=== PATIENT | female | born 1955 | race Caucasian/White ===

== ENCOUNTER 2025-03-20 05:20 | Emergency (ER) | payer OTHER, SELFPAY ==
[2025-03-20 05:25] VITALS: BP 169/91; PULSE 82; TEMP 36.6; O2SAT 95; BMI 31.5
[2025-03-20 05:26] VITALS: BP 169/91
--- OUTSIDE RECORDS SUMMARY | 2025-03-20 05:30 | XMS_ITS | Clinical Summary ---
Author Organization [facility] Address [address] [place] [address] Phone Care Team Providers Care Mri Ct Tech Name Role Phone Yee Sanchez MD Primary Care Provider [phone] Social History Tobacco UseTypesPacks/DayYears UsedDateSmoking Tobacco: Never Assessed CommentsUnknownSex and Gender InformationValueDate RecordedSex Assigned at Not on fileLegal OjsCeubtv59/25/2022 2:01 PM ESTGender IdentityNot on fileSexual OrientationNot on file Plan of Treatment Not on file Care Teams Team MemberRelationshipSpecialtyStart DateEnd Date Yee Sanchez MD [address] [place] [address] PCP - General09/17/21
--- OUTSIDE RECORDS SUMMARY | 2025-03-20 05:30 | XMS_ITS | Clinical Summary ---
Author Organization [facility] Address [address] [facility], [address] [place] [address] Care Team Providers Care Carbon Paper Interleafer Name Role Phone Yee Sanchez MD Primary Care Provider [phone] Allergies No known active allergies Medications MedicationSigDispense QuantityRefillsLast FilledStart DateEnd DateStatus omeprazole (PRILOSEC) 40 MG delayed release capsule Take 40 mg by mouth dailyActive alendronate (FOSAMAX) 70 MG tablet Take 70 mg by mouth every 7 daysActive gabapentin (NEURONTIN) 100 MG capsule Take 1 capsule by mouth 3 times daily for 30 days. 90 capsule 03/21/2020Active Social History Tobacco UseTypesPacks/DayYears UsedDateSmoking Tobacco: NeverSmokeless Tobacco: NeverCommentsUnknownSex and Gender InformationValueDate RecordedSex Assigned at BirthNot on fileLegal LtdKzxnjk04/18/2018 9:34 PM ESTGender Identity Not on fileSexual OrientationNot on file Last Filed Vital Signs Vital SignReadingTime TakenCommentsBlood Pressure--Pulse--Pthjfbqscwi69.1 ??C (96.9 ??F)07/18/2020 11:20 AM ESTRespiratory Rate--Oxygen Saturation--Inhaled Oxygen Concentration--Lufmnn86.3 kg (155 lb)07/18/2020 11:20 AM JXAHjmozk102 cm (5' 3 )07/18/2020 11:20 AM ESTBody Mass Index27.46007/18/2020 11:20 AM EST Plan of Treatment Not on file Insurance Care Teams Team MemberRelationshipSpecialtyStart DateEnd Date Yee Sanchez MD PCP - GeneralFamily Medicine12/25/18
--- OUTSIDE RECORDS SUMMARY | 2025-03-20 05:30 | XMS_ITS | Clinical Summary ---
Author Organization [facility] Address [id number] [address] [place] [address] Care Team Providers Care Compressor Repairer Name Role Phone Unavailable Primary Care Provider Unavailabl e Social History Tobacco UseTypesPacks/DayYears UsedDateSmoking Tobacco: Never AssessedChildcare AnswerDate QnwtgjhuRqfjuzyhsTqfvawp31/12/2019EmploymentAnswerDate Recorded FnkwoayyzzKsgzzzs56/12/2019CommentsUnknownSex and Gender Information ValueDate RecordedSex Assigned at BirthNot on fileLegal LsyAgqomn10/06/2015 12:12 PM EDTGender IdentityNot on fileSexual OrientationNot on file Plan of Treatment Not on file Medical Devices Not on file
--- OUTSIDE RECORDS SUMMARY | 2025-03-20 05:30 | XMS_ITS | Encounter Summary ---
Author Organization [facility] Address [address] [place] [address] Care Team Providers Care Production Illustrator Name Role Phone Jan Rich MD Primary Care Provider + [phone] Jan Rich MD Unavailable [phone] Spencer Lozoya MD Unavailable [phone] Francisco Ronquillo MD Unavailable [phone] Encounter Details DateTypeDepartmentCare Team (Latest Contact Info)Srzeicdcxfp33/30/2025Orders Only [facility] External Department Unsolicited Jan Rich MD [address] [facility] [address] [place] [address] (Fax) Social History Tobacco UseTypesPacks/DayYears UsedDateSmoking Tobacco: NeverPassive Smoke Exposure: PastSmokeless Tobacco: Never Comments:2nd hand smoke. Bot h parents smoked Alcohol UseStandard Drinks/WeekCommentsYes5 (1 standard drink = 0.6 oz pure alcohol)caffeine intake : 1-2 cups per [id number] Health LiteracyAnswerDate RecordedHow often do you need to have someone help you when you read instructions, pamphlets, or other written material from your doctor or pharmacy? Never12/10/2024Humiliation, Afraid, Rape, and Kick questionnaireAnswerDate RecordedWithin the last year, have you been afraid of your partner or ex-partner?No12/10/2024Within the last year, have you been humiliated or emotionally abused in other ways by your partner or ex-partner?No12/10/2024 Within the last year, have you been kicked, hit, slapped, or otherwise physically hurt by your partner or ex-partner?No12/10/2024Within the last year, have you been raped or forced to have any kind of sexual activity by your part ner or ex-partner?No12/10/2024Social Connection and Isolation PanelAnswerDate RecordedIn a typical week, how many times do you talk on the phone with family, friends, or neighbors?Patient oauspupp08/04/2025How often do you get together with friends or relatives?More than three times a week12/10/2024How often do you attend methodist or scientology services?Patient rvcpudey33/04/2025Do you belong to any clubs or organizations such as methodist groups, unions, [employer] or athletic groups, or school groups?Patient eiefdmlp83/04/2025How often do you attend meetings of the clubs or organizations you belong to?Patient okfbxmsi18/04/2025 Are you , , , , never , or living with a partner?Hikwyuu7612/10/2024UDIT-CAnswerDate RecordedQ1: How often do you have a drink containing alcohol?4 or more times a week12/10/2024Q2: How many drinks containing alcohol do you have on a typical day when you are drinking?1 or 2 12/10/2024Q3: How often do you have six or more drinks on one occasion?Never 12/10/2024Overall Financial Resource Strain (CARDIA)AnswerDate RecordedHow hard is it for you to pay for the very basics like food, housing, medical care, and heating?Not hard at all12/10/2024PHQ-2AnswerDate RecordedPatient Health Questionnaire-2 Idjmp569[facility] [place] of Occupational Health - Occupational Stress QuestionnaireAnswerDate RecordedDo you feel stress - tense, restless, nervous, or anxious, or unable to sleep at night because yourmind is troubled all the time - these days?Not at all12/10/2024Exercise Vital SignAnswer Date RecordedOn average, how many days per week do you engage in moderate to strenuous exercise (like a brisk walk)?4 days12/10/2024On average, how many minutes do you engage in exercise at this level?50 min12/10/2024Hunger Vital SignAnswerDate RecordedWithin the past 12 months, you worried that your food would run out before you got the money to buymore.Never true12/10/2024Within the past 12 months, the food you bought just didn't last and you didn't have money to get more.Patient gwfwvagd94/04/2025PRAPARE - TransportationAnswerDate RecordedIn the past 12 months, has lack of transportation kept you from medical appointments or from getting medications?No12/10/2024In the past 12 months, has lack of transportation kept you from meetings, work, or from getting things needed for daily living?No12/10/2024Housing Stability Vital SignAnswerDate RecordedIn the last 12 months, was there a time when you were not able to pay the mortgage or rent on time?No10/10/2022In the last 12 months, how many places have you lived?In the last 12 months, was there a time when you did not have a steady place to sleep or slept in [place] (including now)?No 10/10/2022Housing Stability Vital SignAnswerDate RecordedIn the last 12 months, was there a time when you were not able to pay the mortgage or rent on time?No 12/10/2024Number of Times Moved in the Last YearNot on file12/10/2024t any time in the past 12 months, were you homeless or living in a custodial (including now)? No12/10/2024CommentsNoSex and Gender InformationValueDate RecordedSex Assigned at BirthNot on fileLegal YggAcoppr67/15/2023 6:46 PM EDTGender Identity Not on fileSexual OrientationNot on fileTravel HistoryTravel StartTravel End Jmzyay66documented as of this encounter Plan of Treatment DateTypeDepartmentCare Team (Latest Contact Info)Mtjaddpqzof36/12/2025 10:30 AM ESTOffice Visit [facility] [address] [place] [address] Jan Rich MD [address] [place] [address] (Fax) 05/13/2025 9:40 AM ESTOffice Visit [facility] [address] [place] [phone] Ulises Juares MD [address] [place] [address] 03/03/2026 11:00 AM EDTOffice Visit [facility] [address] [place] [address] Francisco Ronquillo MD [address] [place] [address] documented as of this encounter Procedures Procedure NamePriorityDate/TimeAssociated DiagnosisCommentsT3, FREERoutine 03/07/2025 9:13 AM EDT GKZQezfegp71/30/2025 9:13 AM EDT T4, FYPCFritnkn35/30/2025 9:13 AM EDT documented in this encounter Results * T3, free (03/07/2025 9:13 AM EDT)ComponentValueRef RangeTest MethodAnalysis TimePerformed AtPathologist SignatureT3, FREE2.82.0 - 4.4 pg/mLLABCORPSpecimen (Source)Anatomical Location / LateralityCollection Method / VolumeCollection TimeReceived Time03/07/2025 9:13 AM EDT1 Narrative [facility] - 03/08/2025 8:07 AM EDT Performed at: 02 - [facility] [address] ??[id number] Cleat Feeder: Jose Alas PhD, Phone: ??[phone] Authorizing ProviderResult TypeResult StatusJan LEE BLOOD ORDERABLESFinal ResultPerforming OrganizationAddressCity/State/ZIP CodePhone Number [facility] * TSH (03/07/2025 9:13 AM EDT)ComponentValueRef RangeTest MethodAnalysis Time Performed AtPathologist SignatureTSH1.5700.450 - 4.500 uIU/mLLABCORPSpecimen (Source)Anatomical Location / LateralityCollection Method / VolumeCollection TimeReceived Time03/07/2025 9:13 AM EDT1 Narrative [facility] - 03/08/2025 8:07 AM EDT Performed at: - [address], [address] ??[id number] Cleat Feeder: Sixto García MD, Phone: ??[phone] Authorizing ProviderResult TypeResult StatusJan LEE BLOOD ORDERABLESFinal ResultPerforming OrganizationAddressCity/State/ZIP CodePhone Number [facility] * T4, free (03/07/2025 9:13 AM EDT)ComponentValueRef RangeTest MethodAnalysis TimePerformed AtPathologist UpdfkcnzwG0Zvba(Direct)1.350.82 - 1.77 ng/dL [facility]PSpecimen (Source)Anatomical Location / LateralityCollection Method / VolumeCollection TimeReceived Time03/07/2025 9:13 AM EDT1 Narrative [facility] - 03/08/2025 8:07 AM EDT Performed at: 01 - [place] [address] [address] [facility], [address] ??[id number] Cleat Feeder: Sixto García MD, Phone: ??[phone] Authorizing ProviderResult TypeResult StatusJan LEE BLOOD ORDERABLESFinal ResultPerforming OrganizationAddressCity/State/ZIP CodePhone Number [facility] documented in this encounter Visit Diagnoses Not on filedocumented in this encounter Care Teams Team MemberRelationshipSpecialtyStart DateEnd Date Jan Rich MD [address] [place] [address] (Fax) [facility] Jan Rich MD [address] [place] [address] PCP - Devoted05/09/23 Spencer Lozoya MD [address] [place] [address] Referring PhysicianUrolog06/16/23 Francisco Ronquillo MD [address] [place] [address] Obstetrics and Gynecology06/16/23documented as of this encounter
--- OUTSIDE RECORDS SUMMARY | 2025-03-20 05:30 | XMS_ITS | Clinical Summary ---
Author Organization [facility] Address [address] [place] [address] Care Team Providers Care Children'S Librarian Name Role Phone Jan Rich MD Primary Care Provider + [phone] Jan Rich MD Unavailable [phone] Spencer Lozoya MD Unavailable [phone] Keshawn Ronquillo MD Unavailable [phone] Allergies Active AllergyReactionsCriticalityNoted DateCommentsAmoxicillin-Pot Clavulanate CryyxNeb00/25/2023 AUGMENTIN DlxqborkbojdZoooziaBhb03/25/0295TrqgbkxZatbcCkv96/25/2023LevofloxacinOtherLow 05/31/2023 Muscle aches Medications MedicationSigDispense QuantityRefillsLast FilledStart DateEnd DateStatus fexofenadine (Rosa Allergy) 180 MG tablet Take 180 mg by mouth DailyActive atorvastatin (Lipitor) 20 MG tablet Indications:Mixed dyslipidemiaTake 1 tablet (20 mg) by mouth at bedtime. 90 tablet ctive Multiple Vitamins-Minerals (ONE-A-DAY VITACRAVES PO) Take 1 tablet by mouth 1 (one) time each day With 25mcg Vit DActive Ascorbic Acid (VITAMIN C GUMMIE PO) Take by mouth DailyActive Biotin w/ Vitamins C & E (HAIR SKIN & NAILS GUMMIES PO) Take by mouth DailyActive Probiotic Product (PROBIOTIC ADVANCED PO) Take by mouthActive calcium citrate 250 MG tablet Indications:Osteopenia1 tablet 2-3 times daily as directed.12/19/2023ctive STRONTIUM CITRATE Indications:Osteopenia, unspecified locationTake 1 capsule by mouth at bedtime 12/19/2023ctive cholecalciferol (Vitamin D-3) 125 MCG (5000 UT) tablet Indications:Vitamin D DeficiencyOTC vitamin D3 5000 units, Winter dose, take 1 capsule daily.12/19/2023ctive Menaquinone-7 (Vitamin K2) 100 MCG capsule Indications:Localized osteoporosis without current pathological fractureTake 1 capsule by mouth Daily12/19/2023ctive levothyroxine (Synthroid, Levoxyl) 100 MCG tablet Indications:Acquired hypothyroidismTake 1 tablet (100 mcg) by mouth in the morning. Take before meals. 90 tablet /5Active doxazosin (Cardura) 4 MG tablet Take 4 mg by mouth Daily5Active Spacer/Aero-Holding Chambers (BreatheRite Mckayla Spacer Adult) [facility] Indications:SOBOE (shortness of breath on exertion)2 puffs 4 (four) times a day as needed (sob and cough) 1 each 5Active albuterol HFA 90 mcg/act inhaler Indications:SOBOE (shortness of breath on exertion)Inhale 2 puffs every 4 (four) hours if needed for wheezing 18 g tive triamcinolone (Kenalog) 0.1 % cream Apply topicallyActive omeprazole (PriLOSEC) [address] capsule Indications:LPRD (laryngopharyngeal reflux disease)Take 1 capsule (40 mg) by mouth in the morning. Take before meals. Do not crush or chew. 90 capsule //ctive famotidine (Pepcid) 20 MG tablet Indications:LPRD (laryngopharyngeal reflux disease)Take 1 tablet (20 mg) by mouth at bedtime 90 tablet //ctive azelastine (Astelin) 0.1 % nasal spray Indications:Chronic rhinitisAdminister 2 sprays into each nostril in the morning and 2 sprays before bedtime. Use in each nostril as directed. 90 mL 310ctive fluticasone (Flonase) 50 MCG/ACT nasal spray Indications:Chronic rhinitisAdminister 2 sprays into each nostril Daily Shake gently. Before first use, prime pump. After use, clean tip and replace cap. 48 g 111051ctive Estradiol 0.01 % cream Indications:Postmenopausal atrophic vaginitisInsert 1 g into the vagina 2 (two) times a week 42 g 310/6Active estradiol (Estrace) 0.1 MG/GM vaginal cream Indications:Postmenopausal atrophic vaginitisInsert 1 g into the vagina 2 (two) times a week 42 g Discontinued(Reorder) Active Problems ProblemNoted DateDiagnosed DateChronic emztywh7603/20/2024Non morbid obesity due to excess crnujkda83/12/2024Vitamin D jjdwmxexnl21/12/2024iaphragm paralysis 06/24/2023 Overview (06/24/2023): Right hemidiaphragm elevation Thoracic aorta hwjrcgahcroitxd12/16/2024OAB (overactive bladder)10/14/2022Stress bkhtagkxffif32/08/2023cquired xcaicpjcqxkyxh87/25/2023therosclerosis of abdominal aorta09/30/2022trophic qojvuekne99/25/2023KD (chronic kidney disease), stage II09/30/2022iverticular disease of colon09/30/2022Hashimoto's ongeaiz2209/30/2022Seasonal allergic /25/2023oronary artery disease involving [place] coronary artery of [place] heart without angina pectoris 09/30/2022Hypertrophic ihfvgrtxjwuojy95/25/2023LPRD (laryngopharyngeal reflux disease)09/30/2022Mixed qsbshyltvkrk17/25/2023Nonalcoholic fatty liver disease 09/30/2022Obstructive sleep apnea zydcxdac21/25/1436Rdprpnfmnx18/25/2023History of lumbar sschcarfms39/26/2016 Resolved Problems ProblemNoted DateDiagnosed DateResolved DateOther urethral stricture, female /etained ureteral stent/alculus of ezvzcy27/hronic fatigue njziuqss78/04/2024 Tqbyeqhzvhtpr14/25/202308/Overweight (BMI 25.0-29.9)/04/2024 Pure afqozyesguyrqcyui22/25/202306/12/2022 Encounters DateTypeDepartmentCare LucqUmmzxcprzwt81/05/6917Lpfoms60/30/2025Orders Only [facility] External Department Unsolicited Jan Rich MD 02/25/2025 10:30 AM EDTOffice Visit [facility] [place] [facility] [address] [place] [phone] Keshawn Ronquillo MD Postmenopausal atrophic vaginitis (Primary Dx); Dyspareunia in female; Cervical cancer screening; Other screening bvxfyxlyo65/20/2025amboo flowsheet [facility] [place] [facility] [address] [place] [address] Keshawn Ronquillo MD 02/25/20255209Lcdoic27/06/2025 10:00 AM EDTOffice Visit [facility] [place] [facility] [address] [place] [address] Ulises Juares MD Post-nasal drip (Primary Dx); Chronic cough; Dyspnea, unspecified type; Chronic qcxxvzbi16/06/2025amboo flowsheet [facility] [place] [facility] [address] [place] [address] Ulises Juares MD 02/11/20259045Mzomhh40/05/0148Bwuinj47/18/2025Orders Only [facility] [place] [place] [address] Bg, August, Encounter for screening for malignant neoplasm of colon; Chronic coughfrom Last 3 Months Immunizations ImmunizationAdministration DatesNext DueABRYSVO - Respiratory syncytial virus (RSV), vaccine, bivalent, protein subunit RSV prefusion F, diluent reconstituted, 0.5 mL, PF12/14/2023Influenza, Seasonal, Quadrivalent, Adjuvanted 04/21/2023Influenza, injectable, ppyngthsivja33/28/2020Influenza, seasonal, urnyeqfatq88/12/2014Pneumococcal Conjugate PCV Zoster, Recombinant 12/25/2020,05/14/2020 Family History Medical HistoryRelationNameCommentsCOPDFatherHerbertHearing lossFatherHerbert Heart diseaseFatherHerbertParkinsonismFatherHerbertHeart diseaseMotherThelmaSkin cancerSiblingBasal cell carcinomaSister 1SallyBreast cancerSister 1SallyCancer Sister 1SallyIdiopathic pulmonary fibrosisSister 1SallyArthritisSister 2Roxanne MigrainesSister 2RoxanneOsteoarthritisSister 2RoxanneRheum arthritisSister 2 RoxanneMigrainesSister 3LindaRheum arthritisSister 3LindaArthritisSister 4 Barbara frederickAsthmaSister 4Roxanne frederickRheumatologic diseaseSister 4 Barbara frederickCancerSister 5sally moltzCancerSister 6Sally moltzRelationName StatusCommentsFatherHerbertDeceasedMotherThelmaDeceasedSiblingAliveSister 1Sally Sister 2RoxanneSister 3LindaSister 4Roxanne frederickAliveSister 5sally moltz AliveSister 6Sally moltzAlive Social History Tobacco UseTypesPacks/DayYears UsedDateSmoking Tobacco: NeverPassive Smoke Exposure: PastSmokeless Tobacco: Never Tobacco Cessation:Counseling Given: Yes Comments:2nd hand smoke. Both parents smoked Alcohol UseStandard Drinks/WeekCommentsYes5 (1 standard drink = 0.6 oz pure alcohol)caffeine intake : 1-2 cups per [id number] Health LiteracyAnswerDate RecordedHow often do you need [...] the phone with family, friends, or neighbors?Patient /04/2025How often do you get together with friends or relatives?More than three times a week12/10/2024How often do you attend adventist or muslim services?Patient efbefhiy21/04/2025Do you belong to any clubs or organizations such as adventist groups, unions, fraternal or athletic groups, or school groups?Patient deuwmtoa97/04/2025How often do you attend meetings of the clubs or organizations you belong to?Patient crysuays84/04/2025 Are you , , , , never , or living with a partner?Cyyhhhb1312/10/2024UDIT-CAnswerDate RecordedQ1: How often do you have a [...] heating?Not hard at all12/10/2024PHQ-2AnswerDate RecordedPatient Health Questionnaire-2 Ltumn153[facility] [place] of Occupational Health - Occupational Stress QuestionnaireAnswerDate [...] you didn't have money to get more.Patient yjdppuzc72/04/2025PRAPARE - TransportationAnswerDate RecordedIn the past 12 months, [...] steady place to sleep or slept in [facility] (including now)?No 10/10/2022Housing Stability Vital SignAnswerDate RecordedIn the last 12 months, was there a time when you were not able to pay the mortgage or rent on time?No 12/10/2024Number of Times Moved in the Last YearNot on file12/10/2024t any time in the past 12 months, were you homeless or living in a skilled nursing (including now)? No12/10/2024CommentsNoSex and Gender InformationValueDate RecordedSex Assigned at BirthNot on fileLegal DrzQeuxmu44/15/2023 6:46 PM EDTGender Identity Not on fileSexual OrientationNot on fileTravel HistoryTravel StartTravel End Zjxkxl17 Last Filed Vital Signs Vital SignReadingTime TakenCommentsBlood Okimyajn384/8010 10:23 AM EDT Ehwfp1998 11:07 AM EDTTemperature--Respiratory Rate--Oxygen Saturation 96%12/17/2024 11:07 AM EDTInhaled Oxygen Concentration--Nivmmp09.2 kg (168 lb) 02/25/2025 10:23 AM OLIQndxlw808.8 cm (5' 2.5 )02/11/2025 10:11 AM EDTBody Mass Index30.241 10:11 AM EDT Plan of Treatment DateTypeDepartmentCare Team (Latest Contact Info)Jltukecmurf54/12/2025 10:30 AM ESTOffice Visit [facility] [address] [place] [address] Jan Rich MD [address] [place] [address] (Fax) 05/13/2025 9:40 AM ESTOffice Visit [facility] [place] [facility] [address] [place] [phone] Ulises Juares MD [address] [place] [address] 03/03/2026 11:00 AM EDTOffice Visit [facility] [place] [facility] [address] [place] [address] Keshawn Ronquillo MD [address] [place] [address] Health MaintenanceDue DateLast DoneCommentsCT Gezoygllbppe1956FIT-DNA 1955FIT1955FOBT1955 0024Qjontqaovmhwg1956OVID-19 Vaccine ( season), 07/16/2020, 06/18/2020Influenza Vaccine (#1), 02/04/2020, 04/19/20147044Taxpcuvdmkg96/02/80456406/10/2014 Colorectal Cancer Axpjpidku92/02/3334Jausisiyt96/26/35262507/04/2023, 04/28/2023, 04/28/2023, Additional history existsMedicare Annual Wellness (AWV)12/17/2025 12/17/2024, 12/13/2023, 10/14/2022, Additional history existsPneumococcal Vaccine: 65+ Years (2 of 2 - PPSV23, PCV20, or PCV21) Postponed from 04/16/2020 (Patient Refused) Procedures Procedure NamePriorityDate/TimeAssociated DiagnosisCommentsT3, FREERoutine 03/07/2025 9:13 AM EDT OLWUzwpdzt74/30/2025 9:13 AM EDT T4, KKRLQghakdx10/30/2025 9:13 AM EDT IGP,RFX APTIMA HPV ALL NAPBwkwkan22/20/2025 12:00 AM EDT Cervical cancer screening BI MAMMOGRAM SCREENING TOMOSYNTHESIS TBZFUGRQT68/26/2024 4:26 PM EST TTMZMAEVQKZIlbdbly24/02/2015 12:00 PM EST from Last 3 Months or Most Recently Relevant to Health Maintenance Results * T3, free (03/07/2025 9:13 AM EDT)ComponentValueRef RangeTest MethodAnalysis TimePerformed AtPathologist SignatureT3, FREE2.82.0 - 4.4 pg/mLLABCORPSpecimen (Source)Anatomical Location / LateralityCollection Method / VolumeCollection TimeReceived Time03/07/2025 9:13 AM EDT1 Narrative [facility] - 03/08/2025 8:07 AM EDT Performed at: [address], [place], [place] ??[id number] Drywall Sander: Jose Alas PhD, Phone: ??[phone] Authorizing ProviderResult TypeResult StatusJan LEE BLOOD ORDERABLESFinal ResultPerforming OrganizationAddressty/State/ZIP CodePhone Number [facility] * TSH (03/07/2025 9:13 AM EDT)ComponentValueRef RangeTest MethodAnalysis Time Performed AtPathologist SignatureTSH1.5700.450 - 4.500 uIU/mLLABCORPSpecimen (Source)Anatomical Location / LateralityCollection Method / VolumeCollection TimeReceived Time03/07/2025 9:13 AM EDT1 Narrative [facility] - 03/08/2025 8:07 AM EDT Performed at: 01 - [place] [address] [address] [facility], [address] [place] [phone] Drywall Sander: Sixto García MD, Phone: ??[phone] Authorizing ProviderResult TypeResult StatusEdmaría elena LEE BLOOD ORDERABLESFinal ResultPerforming OrganizationAddressCity/State/ZIP CodePhone Number [facility] * T4, free (03/07/2025 9:13 AM EDT)ComponentValueRef RangeTest MethodAnalysis TimePerformed AtPathologist XvkxgkurbL8Gmqk(Direct)1.350.82 - 1.77 ng/dL [facility]PSpecimen (Source)Anatomical Location / LateralityCollection Method / VolumeCollection TimeReceived Time03/07/2025 9:13 AM EDT1 Narrative [facility] - 03/08/2025 8:07 AM EDT Performed at: 01 - [place] [address] [address] [facility], [address] [place] [address] ??[phone] Drywall Sander: Sixto García MD, Phone: ??[phone] Authorizing ProviderResult TypeResult StatusJan LEE BLOOD ORDERABLESFinal ResultPerforming OrganizationAddressCity/State/ZIP CodePhone Number [facility] * IGP,rfx Aptima HPV all pth (02/25/2025 12:00 AM EDT)ComponentValueRef Range Test MethodAnalysis TimePerformed AtPathologist SignatureDiagnosis:Comment [facility]ABCORPComment:NEGATIVE FOR INTRAEPITHELIAL LESION OR MALIGNANCY.Specimen Adequacy:CommentLABCORPComment: Satisfactory for evaluation. ??Endocervical and/or squamous metaplastic cells (endocervical component) are present. Clinician Provided ICD10:CommentLABCORPComment:Z12.4Performed By:CommentL[facility]P Comment:Vanessa Edmond, Senior Systems Administrator (ASCP)Cyto Comments.[facility]ABCORPNote:Comment [facility]PComment: The Pap smear is a screening test designed to aid in the detection of premalignant and malignant conditions of the uterine cervix. ??It is not a diagnostic procedure and should not be used as the sole means of detecting cervical cancer. ??Both false-positive and false-negative reports do occur. Test Methodology:CommentLABCORPComment: This liquid based ThinPrep(R) pap test was interpreted using the [employer](R) Genius(TM) Cervical Algorithm whole slide imaging system. .CommentLABCORPComment: The HPV DNA reflex criteria were not met with this specimen result therefore, no HPV testing was performed. Specimen (Source)Anatomical Location / LateralityCollection Method / Volume Collection TimeReceived TimeSwabCervical swab / Abixlvn52/ Comment:Cervical Swab Print r Narrative [facility] - 02/28/2025 2:08 PM EDT Performed at: [address] [place] [address] ??[phone] Drywall Sander: Hanna Lindsey MD, Phone: ??[phone] Specimen Comment: [id number] Specimen Comment: Source.............Cervix Specimen Comment: No. of containers..01 ThinPrep Vial Authorizing ProviderResult TypeResult StatusKeshawn LEE CYTOLOGY ORDERABLESFinal ResultPerforming OrganizationAddressCity/State/ZIP CodePhone Number [facility] * Bilateral screening mammogram with tomosynthesis (05/03/2024 4:26 PM EST) Anatomical RegionLateralityModalityBreastBilateralMammographySpecimen (Source) Anatomical Location / LateralityCollection Method / VolumeCollection Time Received Time05/03/2024 4:26 PM EST Impressions 05/03/2024 4:31 PM EST NO MAMMOGRAPHIC EVIDENCE OF MALIGNANCY. ? ROUTINE FOLLOW-UP IS RECOMMENDED IN ONE YEAR. ? RESULT CODE: 2 ? Benign Findings(s) ?? DENSITY CODE: 2 (approximately 25-50% glandular) ?? FOLLOW UP: 1YR ? The false-negative rate of mammography is approximately 10-percent. ? Management of a palpable abnormality must be based on clinical grounds. ?? Patient was entered into a reminder system with a target due date for the next mammogram. ? Impression dictated by: Amirah Calderón M.D.05/03/2024 4:28 PM ? Dictation Location: [facility] ? Transcribed By: ? PWS ?05/03/24 1628 ? Dictated By: ?Amirah Calderón MD ?05/03/24 1626 ? Signed By: <Electronically signed by MD Amirah Calderón in OV> ? 05/03/24 1628 Narrative 05/03/2024 4:31 PM EST [facility] ?[facility] [place] ?[address] ? [place] [address] ? Mammography Report ? Signed ? Patient: Jesús,Roslyn R ?MR#: [id number] ?? [id number] ? : 1955 ?Acct:[id number] ? Age/Sex: 69 / F ?ADM Date: 12/26/24 ? Loc: [place] ?Room: ?Type: REG CLI ?? Attending Dr: Keshawn Ronquillo MD ?? Copies to: KESHAWN RONQUILLO MD ?? Jan Rich MD ? Ordering Provider: KESHAWN RONQUILLO MD ?? Date of Service: 05/03/24 ?? MM/MM screening mammo BI w/CAD: SCREENING ? CLINICAL DATA: ??Screening for malignancy. ? BILATERAL SCREENING MAMMOGRAMS - FULL FIELD DIGITAL WITH TOMOSYNTHESIS AND CAD ? Tomosynthesis craniocaudal and mediolateral oblique views of both breasts were obtained using low- dose digital technique. ??Comparison is made to prior studies from March 23, 2021 through April 28, 2023. ??This examination was reviewed with the aid of CAD. ? There are scattered fibroglandular densities. Benign and vascular calcifications are present. There are no developing masses, typically malignant calcifications or architectural distortion. ??There has been no significant interval change. ? MM/MM screening mammo BI w/CAD ?? Procedure Note Radiology, Radiologist, - 05/03/2024 [facility] [place] [address] Mammography Report Signed Patient: Roslyn Espinosa RMR#: [id number] : 6Acct:[id number] Age/Sex: 69 / FADM Date: 05/03/24 Loc: [place] Room:Type: REG CLI Attending Dr: Keshawn Ronquillo MD Copies to: MD Jan ZAVALA MD Ordering Provider: KESHAWN RONQUILLO MD Date of Service: 05/03/24 MM/MM screening mammo BI w/CAD: SCREENING CLINICAL DATA: Screening for malignancy. BILATERAL SCREENING MAMMOGRAMS - FULL FIELD DIGITAL WITH TOMOSYNTHESIS ANDCAD Tomosynthesis craniocaudal and mediolateral oblique views of both breastswere obtained using low- dose digital technique. Comparison is made to prior studies from 2020 through April 28, 2023. This examination was reviewed with the aid of CAD. There are scattered fibroglandular densities. Benign and vascularcalcifications are present. There are no developing masses, typically malignant calcifications orarchitectural distortion. There has been no significant interval change. MM/MM screening mammo BI w/CAD IMPRESSION: NO MAMMOGRAPHIC EVIDENCE OF MALIGNANCY. ROUTINE FOLLOW-UP IS RECOMMENDED IN ONE YEAR. RESULT CODE: 2 Benign Findings(s) DENSITY CODE: 2 (approximately 25-50% glandular) FOLLOW UP: 1YR The false-negative rate of mammography is approximately 10-percent. Management of a palpable abnormality must be based on clinical grounds. Patient was entered into a reminder system with a target due date for thenext mammogram. Impression dictated by: Amirah Calderón M.D.05/03/2024 4:28 PM Dictation Location: [facility] Transcribed By: KERMIT 05/03/24 1628 Dictated By: Amirah Calderón MD 05/03/24 1626 Signed By: <Electronically signed by MD Amirah Calderón in OV> 05/03/24 1628 Authorizing ProviderResult TypeResult StatusKeshawn Ronquillo MDIMG BI PROCEDURES Final Result * Colonoscopy (04/09/2015 12:00 PM EST)Anatomical RegionLateralityModality EndoscopySpecimen (Source)Anatomical Location / LateralityCollection Method / VolumeCollection TimeReceived Time04/09/2015 12:00 PM EST Narrative 04/09/2015 12:00 PM EST PERFORMED AT [facility] LOCATION:[id number] history of colon polyp, severe diverticulosis Procedure Note CONVERSION, GENERIC - 09/23/2022 PERFORMED AT [facility] LOCATION:[id number] history of colon polyp, severe diverticulosis Authorizing ProviderResult TypeResult StatusYee Sanchez MDENDOSCOPY PROCEDURE ORDERABLESFinal Result from Last 3 Months or Most Recently Relevant to Health Maintenance Insurance Advance Directives TypeDate RecordedPatient RepresentativeExplanationAdvance Directives and Living Will10/18/2022 3:57 PM Care Teams Team MemberRelationshipSpecialtyStart DateEnd Date Jan Rich MD [address] [place] [address] (Fax) [facility] - [facility] Jan Rich MD [address] [place] [address] (Fax) PCP - Devoted05/09/23 Spencer Lozoya MD [address] [place] [address] Referring PhysicianUrolog06/16/23 Keshawn Ronquillo MD [address] [place], [place] [id number] Obstetrics and Gynecology06/16/23
--- OUTSIDE RECORDS SUMMARY | 2025-03-20 05:30 | XMS_ITS | Encounter Summary ---
Author Organization [facility] Address [address] [place] [address] Care Team Providers Care Network Design Architect Name Role Phone Jan Rich MD Primary Care Provider [phone] Jan Rich MD Unavailable [phone] Spencer Lozoya MD Unavailable Francisco Ronquillo MD Unavailable [phone] Encounter Details DateTypeDepartmentCare Team (Latest Contact Info)Cyejxfyiikp44/05/2025Travel Social History Tobacco UseTypesPacks/DayYears UsedDateSmoking Tobacco: NeverPassive Smoke Exposure: PastSmokeless Tobacco: Never Comments:2nd hand smoke. Bot h parents smoked Alcohol UseStandard Drinks/WeekCommentsYes5 (1 standard drink = 0.6 oz pure alcohol)caffeine intake : 1-2 cups per [id number] Health LiteracyAnswerDate RecordedHow often do you need [...] the phone with family, friends, or neighbors?Patient viuvgwer04/04/2025How often do you get together with friends or relatives?More than three times a week12/10/2024How often do you attend quaker or amish services?Patient pojxpdfo81/04/2025Do you belong to any clubs or organizations such as quaker groups, unions, [email or web address] or athletic groups, or school groups?Patient eaoqxwwr31/04/2025How often do you attend meetings of the clubs or organizations you belong to?Patient dxyfjfak01/04/2025 Are you , , , , never , or living with a partner?Npzperr5112/10/2024UDIT-CAnswerDate RecordedQ1: How often do you have a [...] heating?Not hard at all12/10/2024PHQ-2AnswerDate RecordedPatient Health Questionnaire-2 Nexow491[facility] [place] of Occupational Health - Occupational Stress QuestionnaireAnswerDate [...] you didn't have money to get more.Patient glyifyks34/04/2025PRAPARE - TransportationAnswerDate RecordedIn the past 12 months, [...] steady place to sleep or slept in [facility] (including now)?No 10/10/2022Housing Stability Vital SignAnswerDate RecordedIn the last 12 months, was there a time when you were not able to pay the mortgage or rent on time?No 12/10/2024Number of Times Moved in the Last YearNot on file12/10/2024t any time in the past 12 months, were you homeless or living in a half-way (including now)? No12/10/2024CommentsNoSex and Gender InformationValueDate RecordedSex Assigned at BirthNot on fileLegal UgwQpuksu93/15/2023 6:46 PM EDTGender Identity Not on fileSexual OrientationNot on fileTravel HistoryTravel StartTravel End Tvzcbs90documented as of this encounter Plan of Treatment DateTypeDepartmentCare Team (Latest Contact Info)Kpploiyqxcb01/12/2025 10:30 AM ESTOffice Visit [facility] [address] [facility] [address] [place] [address] Jan Rich MD [address] [place] [address] (Fax) 05/13/2025 9:40 AM ESTOffice Visit [facility] [place] [facility] [address] [place] [phone] Ulises Juares MD [address] [place] [address] 03/03/2026 11:00 AM EDTOffice Visit [facility] [address] [place] [address] Francisco Ronquillo MD [address] [place] [address] documented as of this encounter Visit Diagnoses Not on filedocumented in this encounter Care Teams Team MemberRelationshipSpecialtyStart DateEnd Date Jan Rich MD [address] [facility] [address] [place] [address] (Fax) [facility] - [facility] Jan Rich MD [address] [facility] [address] [place] [address] (Fax) PCP - Devoted05/09/23 Spencer Lozoya MD [address] [place] [address] Referring PhysicianUrolog06/16/23 Francisco Ronquillo MD [address] [place] [address] Obstetrics and Gynecology06/16/23documented as of this encounter
--- NOTE | 2025-03-20 05:50 | ED_ITS ---
HPI HPI - General Adult General Chief complaint: Dizziness Stated complaint: dizziness, headache Time Seen by Provider: 03/20/25 05:43 Source: patient Mode of arrival: walk-in Limitations: no limitations History of Present Illness HPI narrative: 2 hours ago dizzy. ? room spinning. Got out of bed and hit the wall. The dizziness has mostly dissipated. Now she has a pressure on the top of her head. No extremity weakness, numbness, chest pain or nausea. Normal vision Review of Systems ROS Status of ROS 10 or more systems reviewed and unremark able except as noted in history and below PFSH PFSH Social History Little interest or pleasure in doing things: not at all Feeling down, depressed, or hopeless: not at all Exam Constitutional Vital Signs, click to edit/add: Last Vital Signs Temp 97.9 F 03/20/25 05:25 Pulse 82 03/20/25 05:25 Resp 18 03/20/25 05:25 BP 169/91 H 03/20/25 05:25 Pulse Ox 95 03/20/25 05:25 O2 Del Method Room Air 03/20/25 05:25 Common normals: no apparent distress, average body habitus, oriented x3, no limitations, healthy appearing, alert and well nourished [facility] Common normals: normocephalic and head/scalp atraumatic Eye Common normals: PERRL, EOMs intact bilaterally and conjunctivae normal Respiratory Common normals: normal respiratory effort, no retractions, no use of accessory muscles and clear to auscultation bilaterally Cardio Common normals: regular rate, regular rhythm, S1 normal heart sound and S2 normal heart sound Extremity Common normals: normal to inspection and full ROM Neuro Common normals: oriented x3, CN's II-XII intact bilaterally, moves all extremities, no focal motor deficits and no sensory deficits noted Psych Appearance: grossly normal Course Vital Signs Vital signs: Vital Signs Temperature 97.9 F 03/20/25 05:25 Pulse Rate 82 03/20/25 05:25 Respiratory Rate 18 03/20/25 05:25 Blood Pressure 169/91 H 03/20/25 05:25 Pulse Oximetry 95 03/20/25 05:25 Oxygen Delivery Method Room Air 03/20/25 05:25 Temperature 97.9 F 03/20/25 05:25 Pulse Rate 82 03/20/25 05:25 Respiratory Rate 18 03/20/25 05:25 Blood Pressure 169/91 H 03/20/25 05:25 Pulse Oximetry 95 03/20/25 05:25 Oxygen Delivery Method Room Air 03/20/25 05:25 Medical Decision Making MDM Narrative Medical decision making narrative: patient presents after she woke up and felt dizzy. States she started walking and fell against the wall. Also complained of pressure top of her head. no other neurologic symptoms. Feeling better after she arrived here with dizziness nearly resolved but still a pressure top of her head. No fever. labs ordered and CT brain ordererd. States once she laid down for the CT she again experienced a spinning sensation. she is better again now that she is sitting up. EOMI, TMs clear. Clinically suspect she has peripheral vertigo. prednisone and antivert ordered. Care transferred at change of shift with pending results to the treatment and CT brain results Lab Data Labs: Lab Results 03/20/25 Range/Units 05:30 WBC 5.8 (4.0-11.0) 10^3/uL RBC 3.72 L (4.20-5.40) 10^6/uL Hgb 12.6 (12.0-16.0) g/dL Hct 36.2 (36.0-48.0) % MCV 97.3 (81.0-99.0) fL MCH 33.9 (26.7-34.0) pg MCHC 34.8 (29.9-35.2) g/dL RDW 11.9 (11.0-15.0) % Plt Count 163 (150-450) 10^3/uL MPV 9.4 L (9.5-13.5) fL Neut % (Auto) 55.4 (43.0-75.0) % Lymph % (Auto) 32.3 (20.5-60.0) % [place] % (Auto) 9.6 (1.7-12.0) % Eos % (Auto) 1.7 (0.9-7.0) % Baso % (Auto) 0.7 (0.2-2.0) % Neut # (Auto) 3.2 (1.4-6.5) 10^3/uL Lymph # (Auto) 1.9 (1.2-3.8) 10^3/uL [place] # (Auto) 0.6 (0.3-0.8) 10^3/uL Eos # (Auto) 0.1 (0.0-0.7) 10^3/uL Baso # (Auto) 0.0 (0.0-0.1) 10^3/uL Abs Immat Gran (auto) 0.02 (0.00-0.03) 10^3/uL Imm/Tot Granulo (auto) 0.3 (0.0-0.5) % Sodium 140 (136-145) mmol/L Potassium 3.9 (3.5-5.1) mmol/L Chloride 106 (98-107) mmol/L Carbon Dioxide 25.9 (21.0-32.0) mmol/L Anion Gap 12.0 BUN 11.0 (7.0-18.0) mg/dL Creatinine 0.72 (0.55-1.02) mg/dL Est GFR ( Amer) >60 (>=60 mL/min/1.73m^2) Est GFR (Non-Af Amer) >60 (>=60 mL/min/1.73m^2) BUN/Creatinine Ratio 15.3 Glucose 103 (74-106) mg/dL Lactate 1.0 (0.4-2.0) mmol/L Calcium 9.8 (8.5-10.1) mg/dL Total Bilirubin 0.6 (0.2-1.0) mg/dL AST 21 (15-37) U/L ALT 23 (14-59) U/L Alkaline Phosphatase 80 (46-116) U/L Total Protein 7.2 (6.4-8.2) g/dL Albumin 3.7 (3.4-5.0) g/dL Globulin 3.5 g/dL Albumin/Globulin Ratio 1.1 Discharge Plan Discharge Patient Disposition: Still a Patient
[2025-03-20 06:00] LABS: Hematocrit 36.2 % (36.0-48.0); Hemoglobin 12.6 g/dL (12.0-16.0); Immature Granulocytes Abs Auto 0.02 10^3/uL (0.00-0.03); Immature Granulocytes Pct Auto 0.3 % (0.0-0.5); Lymphocytes Absolute Auto 1.9 10^3/uL (1.2-3.8); Mean Corpuscular HGB Conc 34.8 g/dL (29.9-35.2); Mean Corpuscular Hemoglobin 33.9 pg (26.7-34.0); Mean Corpuscular Volume 97.3 fL (81.0-99.0); Platelet Count 163 10^3/uL (150-450); Red Blood Count 3.72 10^6/uL (4.20-5.40); White Blood Count 5.8 10^3/uL (4.0-11.0)
[2025-03-20 06:12] LABS: Alanine Aminotransferase 23 U/L (14-59); Albumin Globulin Ratio 1.1; Albumin Level 3.7 g/dL (3.4-5.0); Alkaline Phosphatase 80 U/L (46-116); Anion Gap 12.0; Aspartate Amino Transferase 21 U/L (15-37); Blood Urea Nitrogen 11.0 mg/dL (7.0-18.0); Calcium 9.8 mg/dL (8.5-10.1); Carbon Dioxide 25.9 mmol/L (21.0-32.0); Chloride 106 mmol/L (98-107); Estimated GFR (African America >60 (>=60 mL/min/1.73m^2); Estimated GFR (Non-African Ame >60 (>=60 mL/min/1.73m^2); Globulin 3.5 g/dL; Glucose 103 mg/dL (74-106); Potassium 3.9 mmol/L (3.5-5.1); Sodium 140 mmol/L (136-145); Total Protein 7.2 g/dL (6.4-8.2)
[2025-03-20 06:14] LABS: Lactate/Lactic Acid 1.0 mmol/L (0.4-2.0)
[2025-03-20] MEDS: PREDNISONE 20 MG TABLET 40 MG PO (06:54)
[2025-03-20] MEDS: MECLIZINE HCL 12.5 MG TABLET 25 MG PO (06:54)
[2025-03-20 08:39] VITALS: BP 147/83; PULSE 75; O2SAT 98
== END 2025-03-20 08:44 | disposition home or self-care (01) ==
PROVIDERS: Emergency Provider Internal Medicine; PCP Family Medicine
DX: R42 Dizziness and giddiness (principal); R51.9 Headache, unspecified
CPT/HCPCS: 36415; 70450; 80053; 83605; 85025; 99284; J7512